=== PATIENT | female | born 1945 | race Caucasian/White ===

== ENCOUNTER → 2016-12-14 | Outpatient (CLI) | payer OTHER | LOC: RAD 11:56 | DX: M19.042 Primary osteoarthritis, left hand (principal); S63.502A Unspecified sprain of left wrist, initial encounter; M25.532 Pain in left wrist; W19.XXXA Unspecified fall, initial encounter; Y93.89 Activity, other specified; Y92.89 Other specified places as the place of occurrence of the external cause; Y99.8 Other external cause status ==

== ENCOUNTER → 2018-05-30 | Outpatient (CLI) | payer OTHER ==
[~2018-05-30] VITALS: Ht 154.9 cm; Wt 77.1 kg
[~2018-05-30] MED LIST: ASPIR 8181 MG PO; CLONIDINE HCL0.1 MG PO; LOPRESSOR100 M1 PO; MAXZIDE-25 MG1 EACH PO; MELATONIN5 M1 PO; MOBIC15 MG PO; OMEPRAZOLE 20 M20 M1 PO; SIMVASTATIN40 MG PO; TRIAZOLAM0.25 MG PO; VITAMIN B-12500 MCG PO
--- NOTE | ~2018-05-30 | PATH ---
[facility] [address] [place] [address] PATHOLOGY RPT PROCEDURE Name: CHIQUITA ZELAYA Room #: REG [facility] M.R.#: [id number] Admission: 05/30/18 Date of : 47 Discharge: Report #: [id number] Path Case #: [id number] [facility] Accession Number: [id number] . 01 Material submitted: . PART A: POLYP AT CECUM X4 PART B: POLYP AT HEPATIC FLEXURE PART C: POLYP AT TRANSVERSE COLON PART D: POLYP AT SIGMOID COLON . 01 Clinical history: . Pre-OP DX: Screening Post-OP DX: Colon polyps . 02 Diagnosis: A. Polyp x4, at cecum, endoscopic biopsy: - Multiple fragments showing tubular adenoma. - Negative for high-grade dysplasia. . B. Polyp, at hepatic flexure, endoscopic biopsy: - Compatible with a hyperplastic polyp. - Negative for dysplasia. . C. Polyp, at transverse colon, endoscopic biopsy: - Tubular adenoma. - Negative for high-grade dysplasia. . D. Polyp, at sigmoid colon, endoscopic biopsy: - Tubular adenoma. - Negative for high-grade dysplasia. . (IUV:dusty; 05/31/2018) MBAsmita/05/31/2018 . 02 Electronically signed: . Catina Mclean MD, Pathologist NPI- [id number] . 01 Gross description: . A. Received in formalin labeled "Chiquita Zelaya, polyp at cecum x4," are multiple segments of angela soft tissue measuring 0.9 x 0.6 x 0.1 cm in aggregate dimensions. The specimen is filtered and entirely submitted in cassette A1. . B. Received in formalin labeled "Chiquita Zelaya, polyp at hepatic flexure," is a single segment of angela soft tissue measuring 0.3 cm in maximum dimension. The specimen is entirely submitted in cassette [place] [address] PATHOLOGY RPT PROCEDURE Name: CHIQUITA ZELAYA Room #: REG [facility].#: [id number] Admission: 05/30/18 Date of : 47 Discharge: Report #: [id number] Path Case #: [id number] . C. Received in formalin labeled "Chiquita Zelaya, polyp at transverse colon," is a 0.6 x 0.4 x 0.4 cm polypoid piece of angela soft tissue with a stalk measuring 0.6 cm in length and 0.3 cm in diameter. The margin is inked and the specimen is sectioned perpendicular to the margin and entirely submitted in cassette C1. . D. Received in formalin labeled "Chiquita Zelaya, polyp at sigmoid colon," is a 0.9 x 0.3 x 0.3 cm polypoid piece of angela soft tissue. The margin is inked and the specimen is sectioned perpendicular to the margin and entirely submitted in cassette D1. (TSD; 05/30/2018) TOB/TOB . 02 Pathologist provided ICD-10: D12.0, K63.5, D12.3, D12.5 . 02 CPT . 945484, 003830, 218669, 365051 Specimen Comment: A courtesy copy of this report has been sent to Specimen Comment: [phone], , . Specimen Comment: Report sent to ,DR POPE / DR ESTEBAN Performed at: [address], [place] [id number] MD Parker Osorio MD Phone: [phone] Performed at: [address] [id number] MD Catina Mclean MD Phone: [phone]
== END | disposition home or self-care (01) ==
LOC: GI 08:17
DX: Z12.11 Encounter for screening for malignant neoplasm of colon (principal); D12.0 Benign neoplasm of cecum; K63.5 Polyp of colon; D12.3 Benign neoplasm of transverse colon; D12.5 Benign neoplasm of sigmoid colon; I10 Essential (primary) hypertension; E78.00 Pure hypercholesterolemia, unspecified; K21.9 Gastro-esophageal reflux disease without esophagitis; M19.90 Unspecified osteoarthritis, unspecified site; M10.9 Gout, unspecified; Z90.710 Acquired absence of both cervix and uterus; Z85.3 Personal history of malignant neoplasm of breast; Z98.890 Other specified postprocedural states; Z88.2 Allergy status to sulfonamides; Z79.899 Other long term (current) drug therapy; Z96.652 Presence of left artificial knee joint
CPT/HCPCS: 62110; 62900

== ENCOUNTER → 2018-06-06 | Outpatient (CLI) | payer OTHER | LOC: ULTRA | DX: I10 Essential (primary) hypertension (principal); I15.0 Renovascular hypertension; N28.1 Cyst of kidney, acquired ==

== ENCOUNTER → 2018-06-28 | Outpatient (CLI) | payer OTHER ==
--- NOTE | 2018-07-12 11:35 | SLE ---
[facility] [place] [address] [address] POLYSOMNOGRAPHY STUDY Name: CHIQUITA MANCINI Room #: REG [facility]#: [id number] Admission: 06/28/18 Attend Phys: Scar Rodriguez MD Discharge: Date of : 47 Report #: [id number] THIS REPORT FOR: //name// CC: Scar Villatoro DATE OF SERVICE: 06/28/2018 ATTENDING PHYSICIAN: Dr. Jay Dhillon. The patient is a 73 years old who weighs 170 pounds and 61 inches tall with a BMI of 32. The patient's L[place] score was 9. The patient underwent diagnostic sleep study at [facility]. During the night of study, the patient spent 496 minutes in bed and slept for 158 minutes with a low sleep efficiency of 32%. Sleep latency was 37.9 minutes with a REM latency of 145 minutes. Overall, sleep architecture showed increased stage 1 and stage 2 sleep, absent N3 sleep and normal REM sleep. During the night of the study, the patient had no apneas and 1 hypopnea. The patient's apnea-hypopnea index was only 0.4 per hour. No supine sleep seen. No significant respiratory events seen during REM sleep. EKG monitoring revealed an average heart rate of 54 beats per minute. No sustained arrhythmias were observed. PLMS were not seen. Nocturnal oximetry study revealed an average oxygen saturation of 96% with a low of 92%. Due to low AHI, the patient did not meet the split night criteria for CPAP initiation. IMPRESSION: 1. No clinically significant sleep disordered breathing. The patient's AHI for the entire night was 0.4 per hour. 2. No clinically significant nocturnal hypoxia. 3. No clinically significant periodic limb movements. 4. 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 RECOMMENDATIONS: 1. The patient did not meet the criteria for CPAP initiation. 2. The patient's insomnia may be contributing to the patient's symptoms and [facility] [address] [place] [address] POLYSOMNOGRAPHY STUDY Name: ADDISCHIQUITA RUPA Room #: [facility]#: [id number] Admission: 06/28/18 Attend Phys: Scar Rodriguez MD Discharge: Date of : 47 Report #: [id number] this should be further evaluated and treated if it is a chronic condition. 3. Weight loss is advised. 4. Avoid [employer] depressants. <ELECTRONICALLY SIGNED> By: Scar Rodriguez MD 07/12/18 1135 1704 1853 Scar Rodriguez MD /nt
== END ==
LOC: SLEEPLAB 16:26
DX: G47.33 Obstructive sleep apnea (adult) (pediatric) (principal); G47.00 Insomnia, unspecified

== ENCOUNTER → 2018-09-22 | Outpatient (CLI) | payer OTHER | LOC: RAD 08:47 | DX: M19.071 Primary osteoarthritis, right ankle and foot (principal); Z88.2 Allergy status to sulfonamides; Z98.890 Other specified postprocedural states ==

== ENCOUNTER → 2019-08-10 | Outpatient (CLI) | payer OTHER | LOC: SJCVC 10:32 | DX: R00.1 Bradycardia, unspecified (principal); R94.31 Abnormal electrocardiogram [ECG] [EKG]; E78.5 Hyperlipidemia, unspecified; I10 Essential (primary) hypertension; I73.9 Peripheral vascular disease, unspecified; Z82.49 Family history of ischemic heart disease and other diseases of the circulatory system; Z87.891 Personal history of nicotine dependence; Z79.899 Other long term (current) drug therapy ==

== ENCOUNTER → 2019-08-14 | Outpatient (CLI) | payer OTHER | LOC: SJCVCIMAG 08:28 | DX: Z01.818 Encounter for other preprocedural examination (principal); R06.00 Dyspnea, unspecified; I10 Essential (primary) hypertension; E78.5 Hyperlipidemia, unspecified; I73.9 Peripheral vascular disease, unspecified; Z79.891 Long term (current) use of opiate analgesic; Z79.899 Other long term (current) drug therapy; Z88.2 Allergy status to sulfonamides; Z87.891 Personal history of nicotine dependence ==

== ENCOUNTER → 2019-11-30 | Outpatient (CLI) | payer OTHER | LOC: SJCVC 14:29 | DX: R00.1 Bradycardia, unspecified (principal); I10 Essential (primary) hypertension; E78.5 Hyperlipidemia, unspecified; I73.9 Peripheral vascular disease, unspecified; I70.1 Atherosclerosis of renal artery ==

== ENCOUNTER → 2020-06-03 | Outpatient (CLI) | payer OTHER | LOC: SJCVC 14:53 | PROVIDERS: ATTEND Internal Medicine | DX: R00.1 Bradycardia, unspecified (principal); I10 Essential (primary) hypertension; E78.5 Hyperlipidemia, unspecified; I73.9 Peripheral vascular disease, unspecified; I70.1 Atherosclerosis of renal artery ==

== ENCOUNTER → 2020-11-25 | Outpatient (CLI) | payer OTHER | LOC: SJCVC 11:14 | PROVIDERS: ATTEND Internal Medicine | DX: R00.1 Bradycardia, unspecified (principal); I10 Essential (primary) hypertension; E78.5 Hyperlipidemia, unspecified; I73.9 Peripheral vascular disease, unspecified; I70.1 Atherosclerosis of renal artery; G47.00 Insomnia, unspecified; M54.16 Radiculopathy, lumbar region; M19.90 Unspecified osteoarthritis, unspecified site; Z87.891 Personal history of nicotine dependence; Z79.899 Other long term (current) drug therapy; Z88.2 Allergy status to sulfonamides; Z85.3 Personal history of malignant neoplasm of breast; Z82.49 Family history of ischemic heart disease and other diseases of the circulatory system ==

== ENCOUNTER → 2021-01-06 | Outpatient (CLI) | payer OTHER | LOC: CAT 09:05 | PROVIDERS: ATTEND Internal Medicine | DX: Z13.6 Encounter for screening for cardiovascular disorders (principal) ==

== ENCOUNTER → 2021-05-28 | Outpatient (CLI) | payer OTHER | LOC: SJCVC 10:51 | PROVIDERS: ATTEND Internal Medicine | DX: I10 Essential (primary) hypertension (principal); E78.5 Hyperlipidemia, unspecified; I73.9 Peripheral vascular disease, unspecified; I70.1 Atherosclerosis of renal artery; D21.9 Benign neoplasm of connective and other soft tissue, unspecified; G47.00 Insomnia, unspecified; M19.90 Unspecified osteoarthritis, unspecified site; Z85.3 Personal history of malignant neoplasm of breast; Z79.899 Other long term (current) drug therapy; Z87.891 Personal history of nicotine dependence; Z72.89 Other problems related to lifestyle; Z88.8 Allergy status to other drugs, medicaments and biological substances ==

== ENCOUNTER → 2021-06-03 | Outpatient (CLI) | payer OTHER ==
[~2021-06-03] MED LIST changes: +ASA81BEC PO; +IRBESARTAN300 MG PO; +TYLENOL PM EX-1 EACH PO
== END ==
LOC: LAB 05:44
PROVIDERS: ATTEND Student in an Organized Health Care Education/Training Program
DX: Z01.812 Encounter for preprocedural laboratory examination (principal); Z20.822 Contact with and (suspected) exposure to COVID-19

== ENCOUNTER → 2021-06-09 | Outpatient (CLI) | payer OTHER ==
[~2021-06-09] VITALS: Ht 152.4 cm; Wt 81.6 kg
--- NOTE | 2021-06-11 13:08 | PATH ---
[facility] [address] [address] PATHOLOGY RPT PROCEDURE Name: CHIQUITA ZELAYA Room #: REG [facility] M.R.#: [id number] Admission: 06/09/21 Date of : 47 Discharge: Report #: [id number] Path Case #: [id number] [facility] Accession Number: [id number] . 01 Material submitted: . PART A: colon - ASCENDING COLON POLYP. Modifiers: ascending PART B: colon - RANDOM COLON POLYP- R/O MICROSCOPIC COLITIS PART C: colon - TRANSVERSE COLON POLYP. Modifiers: transverse . 01 Clinical history: . COLONOSCOPY HISTORY OF TUBULAR ADENOMAS/POLYPS/ DIARRHEA . 02 Diagnosis: A. Ascending colon polyp, polypectomy: - Colonic mucosa with mild nonspecific chronic inflammation. - Negative for adenomatous change or malignancy. . B. Random colon, biopsy: - Colonic mucosa with mild increase in intraepithelial and crypt lymphocytes. Please see comment. . C. Transverse colon polyp, polypectomy: - Colonic mucosa with mild chronic nonspecific inflammation. - Negative for adenomatous change or malignancy. (ANK:patito; 06/11/2021) QMS 06/11/2021 1209 Local . 02 Comment: There is mild increase in intraepithelial lymphocytes within the surface epithelium and crypt. This can be suggestive of mild lymphocytic colitis. Recommend clinical correlation. (ANK:patito; 06/11/2021) . 02 Electronically signed: . Anita Rodriguez MD, Pathologist NPI- [id number] . 01 Gross description: . A. The specimen is received in formalin, labeled "Chiquita Zelaya, ascending colon polyp" and consists of a angela polypoid tissue measuring 0.4 x 0.2 x 0.2 cm which is submitted in toto in A1. . B. The specimen is received in formalin, labeled "Chiquita Zelaya, random colon BX-R/O microscopic colitis" and consists of multiple angela irregular tissues aggregating 0.7 x 0.5 x 0.2 cm which are submitted in toto in B1. . [address] [address] PATHOLOGY RPT PROCEDURE Name: ADDISCHIQUITA GOODE Room #: REG [facility].#: [id number] Admission: 06/09/21 Date of : 47 Discharge: Report #: [id number] Path Case #: [id number] C. The specimen is received in formalin, labeled "Chiquita Zelaya, transverse colon polyp" and consists of a angela irregular tissue measuring 0.4 x 0.2 x 0.2 cm which is submitted in toto in C1.([place]; 06/10/2021) DKA/DKA 06/11/2021 1104 Local . 02 Pathologist provided ICD-10: K52.9 . 02 CPT . 934476, 687483, 228967 Specimen Comment: A courtesy copy of this report has been sent to [phone] Specimen Comment: [phone] Specimen Comment: Report sent to / DR POPE Performed at: [address], [place] [id number] MD Bruce Arana MD Phone: [phone] Performed at: [address] [id number] MD Catina Mclean MD Phone: [phone]
== END | disposition home or self-care (01) ==
LOC: GI
PROVIDERS: ATTEND Internal Medicine Gastroenterology
DX: K52.9 Noninfective gastroenteritis and colitis, unspecified (principal); K57.30 Diverticulosis of large intestine without perforation or abscess without bleeding; K64.8 Other hemorrhoids; I10 Essential (primary) hypertension; E78.00 Pure hypercholesterolemia, unspecified; K21.9 Gastro-esophageal reflux disease without esophagitis; M19.90 Unspecified osteoarthritis, unspecified site; Z86.010 Personal history of colon polyps; Z85.3 Personal history of malignant neoplasm of breast; Z85.828 Personal history of other malignant neoplasm of skin; Z98.890 Other specified postprocedural states; Z79.899 Other long term (current) drug therapy; Z87.891 Personal history of nicotine dependence; Z96.653 Presence of artificial knee joint, bilateral; Z90.710 Acquired absence of both cervix and uterus
CPT/HCPCS: 62110; 62900

== ENCOUNTER → 2021-06-16 | Outpatient (CLI) | payer OTHER | LOC: SJCVC 09:36 | PROVIDERS: ATTEND Internal Medicine | DX: E78.5 Hyperlipidemia, unspecified (principal); Z79.899 Other long term (current) drug therapy; E66.9 Obesity, unspecified; I10 Essential (primary) hypertension; Z82.49 Family history of ischemic heart disease and other diseases of the circulatory system; Z88.2 Allergy status to sulfonamides; Z87.891 Personal history of nicotine dependence; Z72.89 Other problems related to lifestyle ==